=== PATIENT | male | born 1945 | race Caucasian/White ===

== ENCOUNTER 2017-02-19 09:24 | Day surgery (SDC) | payer MEDICARE, BC ==
--- NOTE | 2017-02-16 14:41 | HP ---
Chief Complaint - Chief Complaint Date of Service: 02/16/17 Chief Complaint: need a colonoscopy History of Present Illness: 72 yo male whose last colonoscopy was over three years ago.History of colon resection for unresectable colon polyp. No blood in stools, but a history of intermittent diarrhea every few weeks. Cramps with BMs but no blood in stools. On coumadin. They would rpefer not to stop the coumadin because of risks off the coumadin and the problems with bridging, but understand that this will be more of a diagnostic colonoscopy and not terapeutic, unless only minimal, less risky biospy done or clip applied. There is a family history of colon cancer. - Patient's Past Medical History Patient History - Medical: Arthritis, Hypothyroidism, Other - klippel tenaurny krueger syndrome Patient History - Cardiac/Respiratory: Atrial Fibrillation, Cardiomyopathy, Deep Vein Thrombosis, Pulmonary Embolism Patient History - Cancer: No Hx of Cancer Patient History - Surgical Procedures: Amputation, Back Surgery - seven surgeries, Colon Resection, Colonoscopy, Pacemaker - with defibrillator, Other - IVC filter, vein stripping, , Urology - Family History Family History:: no untoward family reactions to anesthesia, no familial bleeding tendencies, no family history of clotting disorders - Family History Mother Family History - Medical: Family History - Cancer: Colon - Social History Living Situations: spouse Abuse History: No History of abuse Psych History: No pertinent hx Does anyone smoke in the home?: No Alcohol Use: occasionally Drug Use: none - Immunizations Immunizations Up to Date: Yes Hx Pneumococcal Vaccination: Yes History of Influenza Vaccine: Yes Review Of Systems (GEN) - Review of Systems Generalized/Overall Review: Absent: Weakness, Chills, Fever, Fatigue, Weight loss EENTM: Absent: Blurred Vision, Double Vision Respiratory: Absent: Cough, Shortness of Breath, Stridor, Wheezing Cardiac: Absent: Chest Pain, Edema, Palpitations Abdominal: Present: Diarrhea. Absent: Vomiting, Abdominal Pain, Constipation, Bright blood from rectum Genitourinary: Present: Nocturia. Absent: Burning, Urgency, Frequency Musculoskeletal: Present: Joint Pain, Back Pain, Muscle Pain, Neck Pain Neurological: Absent: Headache, Anxiety, Emotional Problems, Numbness, Tingling Skin: Absent: Dryness, Lesions, Bruising Endocrine: Absent: Intolerance to Cold Allergies/Adverse Reactions: Allergies Allergy/AdvReac Type Severity Reaction Status Date / Time rifampin Allergy Unknown Unverified 09/19/12 13:39 Home Medications: HOME MEDICATIONS Gabapentin [Neurontin] 300 mg PO BID 09/21/12 [Last Taken Unknown] Multivitamin [Multivitamins] 1 each PO DAILY 09/21/12 [Last Taken Unknown] Venlafaxine HCl [Effexor Xr] 75 mg PO DAILY 09/21/12 [Last Taken Unknown] Warfarin Sodium [Coumadin] 5 mg PO 09/21/12 [Last Taken Unknown] Levothyroxine Sodium [Synthroid] 100 mcg PO DAILY 02/16/17 [Last Taken Unknown] Lisinopril 5 mg PO 02/16/17 [Last Taken Unknown] Metoprolol Succinate 25 mg PO 02/16/17 [Last Taken Unknown] Exam - Exam Vital Signs: Vital Signs - Last Taken Temp 36.3 C L 02/16/17 Pulse 72 Resp BP 145/75 02/16/17 Pulse Ox Ht 6'2 Wt 215#s Constitutional: Present: Alert, Oriented x3, Cooperative, Well developed, No distress ENT Exam: Present: normal ENT inspection, hearing grossly normal Eye Exam: bilateral eye: normal inspection Breasts: Present: Exam deferred Respiratory: Present: chest non-tender, lungs clear, normal breath sounds, no respiratory distress Cardiovascular/Chest: Present: normal peripheral pulses, regular rate, rhythm, no chest tenderness, no edema - left side, no gallop, no murmur Abdomen: Present: Normal bowel sounds, soft, nontender, nondistended, no masses /Rectal: Present: Exam deferred Extremity: Present: normal range of motion, non-tender, other - right lower leg amputation Skin Exam: Present: normal color, warm/dry, no cyanosis Neurologic: Present: alert, normal mood/affect, oriented x 3, abnormal gait Appearance: Present: appropriate appearance, appropriate insight, neat, no memory impairment Eye contact: Present: cooperative, good eye contact, normal speech Thoughts: Present: normal thought pattern, no apparent hallucination Assessment/Plan - Narrative Narrative: I discussed the risks and benefits of a colonoscopy with the patient and his . Prep discussed. Coumadin discussed. We will avoid biopsy and polypectomy unless very easy and low risk of post procedure bleeding. If we canot, the stopping the coumadin and coming back another day will occur. He agrees. - Assessment/Plan (1) Colon polyps Problem: Acute (2) Family history of colon cancer Problem: Chronic (3) Nmogvls-Gwcazzvgr-Udvhw syndrome Problem: Chronic (4) Atrial fibrillation Problem: Chronic (5) Previous back surgery Problem: Chronic (6) Hypothyroidism Problem: Chronic
[~2017-02-19 09:24] MED LIST: RINGER'S SOLUTION,LACTATED 1,000 ML IV PRN
--- OUTSIDE RECORDS SUMMARY | 2017-02-19 09:27 | XMS REPORT | Continuity of Care Document ---
:1945 Author Organization [facility] ([facility]) Address [place] [address] Phone [phone] Care Team Providers Name Role Phone Ezekiel Lee Primary Care Provider [phone] Source Comments This disclosure is being made pursuant to the Care Everywhere program, applicable federal and state laws, and may not contain all informaitonavailable regarding this patient.[facility] ([facility]) Active Allergies and Adverse Reactions Allergen Noted Date Severity Reactions Comments Rifampin (Bulk) 03/01/2009 Medium Rash He was started on Rifampin 2 weeks ago and noticed rash, there is Eosinophilia in the CBC as well Current Medications Prescription Sig. Disp. Refills Start Date End Date Status venlafaxine (EFFEXOR XR) take 75 mg by mouth Active 75 mg XR capsule daily. warfarin (COUMADIN) 5 mg Take 5 mg by mouth Active tablet daily. Take 5 mg x 4 days. Take 7.5 mg x 3 days (M-W-F) Cdtuehygnwj-Ttcrlkqmo-Iie Take by mouth Active C-Mn (GLUCOSAMINE daily. CHONDROITIN MAXSTR) 500-400 mg Cap lisinopril 5 mg tablet Take 5 mg by mouth Active daily. metoPROLol (TOPROL XL) Take 25 mg by mouth Active succinate 25 mg XL tablet daily multivitamin tablet Take 1 tablet by Active mouth daily gabapentin 300 mg capsule TK 1 C PO QAM AND 2 1 04/10/2016 Active CS QPM levothyroxine 100 mcg Take 100 mcg by Active tablet mouth every morning before breakfast. Active Problems Problem Noted Date Dilated cardiomyopathy 07/09/2015 Overview: Formatting of this note may be different from the original. 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: Cath (Normal Coronaries) - 01/2014 ECHO/MUGA: Echo (EF 0.30 (30%), No significant valve disease) - 01/2014 S/P ICD (internal cardiac defibrillator) procedure 07/09/2015 Hypertrophy of prostate with urinary obstruction and other lower urinary 07/29 tract symptoms (LUTS) Wmtncko-Thugpaoiz-Xfmez syndrome 07/29/2009 Elevated prostate specific antigen (PSA) 09/07/2007 Other peripheral vascular disease(443.89) 03/30/2006 Spinal stenosis, unspecified region other than cervical 03/25/2006 Scoliosis associated with other condition 03/25/2006 Atrial fibrillation Resolved Problems Problem Noted Date Resolved Date Wound infection 02/19/2009 12/07/2015 Postoperative wound infection 02/19/2009 12/07/2015 Follow-up examination, following unspecified surgery 03/09/2007 12/07/2015 Most Recent Encounters Date Type Specialty Providers Description 12/23/2016 Telephone Heart and Vascular Jemal Singh MD Chief Comp: Other 12/22/2016 Office Visit Heart and Vascular Claire Grover MD Dx: Paroxysmal atrial fibrillation (Primary Dx) Immunizations Name Dates Previously Given Next Due Influenza, unspecified 06/14/2012,08/06/2009,06/20/2008,09/2006,08/04/2006 Novel Inluenza H1N1, unspecified 08/20/2009 Pneumococcal Conjugate, PCV13 (Prevnar 07/15/2016 13) Pneumococcal, unspecified 11/03/2007 Social History Tobacco Use Types Packs/Day Years Used Date Former Smoker Cigarettes 1 13 Quit: 09/20/2005 Smokeless Tobacco: Former User Comments:quit 1976 Alcohol Use Drinks/Week oz/Week Comments Yes 3-4 drinks/week Last Filed Vital Signs Vital Sign Reading Time Taken Blood Pressure 142/90 12/22/2016 10:04 AM CDT Pulse 110 12/22/2016 10:04 AM CDT Temperature 36.6 C (97.9 F) 03/30/2014 10:13 AM CDT Respiratory Rate 16 06/21/2013 12:27 PM CDT Height 1.88 m (6' 2") 12/22/2016 10:04 AM CDT Weight 100.699 kg (222 lb) 12/22/2016 10:04 AM CDT Body Mass Index 28.49 12/22/2016 10:04 AM CDT Oxygen Saturation 98% 02/22/2013 11:22 AM CDT Plan of Care Date Type Specialty Providers Description 03/02/2017 Appointment Heart and Vascular Claire Grover MD Subj: Appointment [address] [place] [address] [phone] (Fax) 04/06/2017 Appointment Heart and Vascular Jemal Singh MD Subj: Appointment [address] [place] [address] [phone] (Fax) 07/29/2017 Appointment Heart and Vascular Claire Grover MD Subj: Appointment [address] [place] [address] [phone] (Fax) Health Maintenance Due Date Last Done Comments HCV Screening 1945 Hepatitis B Vaccine (1 of 3 1945 - Primary Series) Tdap Vaccine 1958 Lipid Disorder Screening 1965 Td Vaccine 1965 Colonoscopy 01/08/1997 Zoster Vaccine 2007 Prostate Cancer Screening 09/29/2012 09/29/2010, 04/02/2010, Additional history 04/02/2010 exists Pneumococcal Vaccine (2 of 07/15/2017 07/15/2016, 07/15/2016 2 - PPSV23) (Completed outside this hospital or clinic) Influenza Vaccine: Seasonal Addressed 07/15/2016 (Completed Overridden with the outside this hospital intention of not or clinic), 07/20/2014 completing the topic, (Previously completed), Additional history 06/14/2012 exists Results from Last 3 Months Not on file
[2017-02-19] MEDS ORDERED: RINGER'S SOLUTION,LACTATED 1,000 ML IV PRN (11:04)
--- NOTE | 2017-02-19 11:05 | OR ---
Operative Report - Dictated Report Narrative: DATE OF PROCEDURE: 02/19/2017 PREOPERATIVE DIAGNOSIS: #1 Screening colonoscopy #2 history of polyps #3 Klippel-Trenaunay labor syndrome #4 family history of colon cancer POSTOPERATIVE DIAGNOSIS: #1 Screening colonoscopy #2 same as above OPERATION: Colonoscopy SURGEON: Celso Bright M.D., FACS ANESTHESIA : Meena León CRNA sedation INDICATIONS: This is a 72 year old male who presents for a screening colonoscopy. I have discussed the risks, benefits, indications, and contraindications for colonoscopy with the possibility of biopsy. He understands, agrees, and wishes to proceed. He has undergone a SUPREP and has tolerated it well. He will remain on his Coumadin, and we have agreed not to do any polypectomies, possibly a biopsy if needed. PROCEDURE: The patient was brought to the operating theater and placed into the left lateral decubitus position. The patient underwent sedation per anesthesia , and a digital rectal exam was performed. This was noted to be unremarkable. The patient was noted to have no internal or external hemorrhoids. The Olympus video colonoscope was introduced and advanced into the rectum. The rectum has extensive varicosities given his disease process, and this is unchanged from previous scopes. The scope was then advanced through the sigmoid , where no diverticular disease was noted. The scope was then advanced to the cecum using standard reduction techniques. The small bowel was encountered. The prep appeared to be excellent with a [place] prep score of 9. The scope was withdrawn slowly as the ascending, transverse, descending, and sigmoid colon were examined in a circumferential fashion. The scope was brought back into the rectum, the lower rectum was examined. The air was decompressed, and the scope was then removed. Withdrawal time was 8 minutes. POSTOPERATIVE CONDITION: The patient was awakened and taken to the ambulatory surgery center in good condition. No complications were encountered. FINDINGS: No signs of polyps, diverticulosis, or tumors. Varicosities in the rectum only. Specimens: None EBL: 0 The findings were discussed with the patient and his . I recommend a follow -up colonoscopy in 5 years for screening purposes.
[2017-02-19 12:16] VITALS: BP 143/80
== END 2017-02-19 09:25 | disposition home or self-care (01) ==
LOC: AMB 09:24
PROVIDERS: ATTEND Surgery
PROC: 0DJD8ZZ Inspection of Lower Intestinal Tract, Via Natural or Artificial Opening Endoscopic (ICD-10-PCS; principal; 2017-02-19 10:40)
DX: Z12.11 Encounter for screening for malignant neoplasm of colon (principal); E03.9 Hypothyroidism, unspecified; I48.91 Unspecified atrial fibrillation; I42.9 Cardiomyopathy, unspecified; Q87.2 Congenital malformation syndromes predominantly involving limbs; Z86.010 Personal history of colon polyps; Z80.0 Family history of malignant neoplasm of digestive organs; Z68.27 Body mass index [BMI] 27.0-27.9, adult